=== PATIENT | female | born 1945 | race Caucasian/White ===

== ENCOUNTER 2018-06-17 10:45 | Emergency (ER) | payer MEDICARE, OTHER ==
[2018-06-17 11:25] VITALS: BP 126/68
--- NOTE | 2018-06-17 11:33 | UC ---
Cardiac HPI - HPI Summary HPI Summary: 72-year-old female presents with 2-3 week history of substernal "heartburn" with exertion. States 2 weeks ago she had an episode of severe discomfort with a "crushing chest pain" and shortness of breath. Her most recent episode was 3 days ago that came on while she was climbing her stairs in her home. States she had to stop and rest and symptoms subsided after a few minutes. Symptoms are associated with some additional shortness of breath and nausea. No cardiac history. Denies fever, chills, weakness, dizziness, syncope, abdominal pain, vomiting, diarrhea. - History of Current Complaint Chief Complaint: UCGeneralIllness Stated Complaint: PREV SYNCOPAL EPISODE Time Seen by Provider: 06/17/18 10:52 Hx Obtained From: Patient Pain Intensity: 0 - Allergy/Home Medications Allergies/Adverse Reactions: Allergies Allergy/AdvReac Type Severity Reaction Status Date / Time No Known Allergies Allergy Verified 06/17/18 10:55 Home Medications: Home Medications Albuterol HFA INHALER* [Ventolin HFA Inhaler*] 1 puff INH Q4H 06/17/18 [History Confirmed 06/17/18] Cholecalciferol TAB* [Vitamin D TAB*] 1 each PO DAILY 06/17/18 [History Confirmed 06/17/18] Folic Acid 1 each PO DAILY 06/17/18 [History Confirmed 06/17/18] Levothyroxine TAB* [Synthorid 112 MCG TAB*] 112 mcg PO DAILY 06/17/18 [History Confirmed 06/17/18] Metaproterenol Sulfate 1 neb INH DAILY 06/17/18 [History Confirmed 06/17/18] Methotrexate TAB* 6 tab PO WEEKLY 06/17/18 [History Confirmed 06/17/18] PMH/Surg Hx/FS Hx/Imm Hx - Additional Past Medical History Additional PMH: Rheumatoid arthritis Endocrine History: Hypothyroidism Respiratory History: Asthma - Surgical History Surgical History: None - Family History Known Family History: Positive: Non-Contributory - Social History Occupation: Retired Lives: With Family Alcohol Use: None Substance Use Type: None Smoking Status (MU): Never Smoked Tobacco Review of Systems All Other Systems Reviewed And Are Negative: Yes Constitutional: Negative: Fever, Chills Respiratory: Positive: Shortness Of Breath. Negative: Cough Cardiovascular: Positive: Chest Pain. Negative: Palpitations Gastrointestinal: Positive: Nausea. Negative: Abdominal Pain, Vomiting, Diarrhea Musculoskeletal: Positive: Negative Neurological: Negative: Headache, Weakness, Paresthesia, Numbness Is Patient Immunocompromised?: Yes - Methotrexate for RA Physical Exam - Summary Physical Exam Summary: GENERAL APPEARANCE: Well developed, well nourished, alert and cooperative, and appears to be in no acute distress. NECK: Neck supple, non-tender without lymphadenopathy. No JVD noted. CARDIAC: Normal S1 and S2. No S3, S4 or murmurs. Rhythm is regular. Tachycardic. There is no peripheral edema, cyanosis or pallor. Extremities are warm and well perfused. Capillary refill is less than 2 seconds. Peripheral pulses intact. LUNGS: Clear to auscultation without rales, rhonchi, wheezing or diminished breath sounds. ABDOMEN: Positive bowel sounds. Soft, nondistended, nontender. No guarding or rebound. No masses or hepatosplenomegally. MUSKULOSKELETAL: ROM intact to all extremities. No joint erythema or tenderness. Normal muscular development. Normal gait. SKIN: Skin normal color, texture and turgor with no lesions or eruptions. 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 No old EKG available for comparison. - Assessment/Plan Course Of Treatment: 72-year-old female presents with 2-3 week history of substernal "heartburn" with exertion. States 2 weeks ago she had an episode of severe discomfort with a "crushing chest pain" and shortness of breath. Her most recent episode was 3 days ago that came on while she was climbing her stairs in her home. States she had to stop and rest and symptoms subsided after a few minutes. Symptoms are associated with some additional shortness of breath and nausea. No cardiac history. Denies fever, chills, weakness, dizziness, syncope, abdominal pain, vomiting, diarrhea. Afebrile. Vital signs stable rest however during orthostatic vitals patient became hypotensive when changing from a sitting to standing position. 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 No old EKG available to compare. Exam was unremarkable however with her history, EKG changes, and orthostasis I am recommending immediate evaluation in the emergency room with transport via EMS. Patient is agreeable to this plan of care and was transferred to the [facility] emergency room via [facility] in stable condition. - Differential Diagnoses - Chest Pain Differential Diagnosis/HQI/PQRI: Acute TX, ACS, Angina, Aortic Aneurysm, GI Disease, Lower Respiratory Infection, Pulmonary Embolism - Clinical Impression Provider Diagnosis: Exertional chest pain Discharge - Sign-Out/Discharge Documenting (check all that apply): Patient Departure All imaging exams completed and their final reports reviewed: No Studies - Discharge Plan Condition: Stable Disposition: TRANS HIGHER LVL OF CARE FAC Referrals: Josh Alegre MD [Primary Care Provider] - Additional Instructions: Your symptoms are very concerning for heart disease and possible recent heart attack. I am recommending that you are urgently evaluated in the emergency room and that you be transferred via ambulance. - Billing Disposition and Condition Condition: STABLE Disposition: Trans Higher Lvl of Care Fac
== END 2018-06-17 11:27 | disposition short-term general hospital (02) ==
LOC: UCCORT 10:45
DX: R07.89 Other chest pain (principal); R12 Heartburn; R06.02 Shortness of breath; R11.0 Nausea; E03.9 Hypothyroidism, unspecified; J45.909 Unspecified asthma, uncomplicated; M06.9 Rheumatoid arthritis, unspecified; Z79.899 Other long term (current) drug therapy
CPT/HCPCS: 93005; 99203; G0463

== ENCOUNTER 2018-10-20 18:11 | Emergency (ER) | payer MEDICARE, OTHER ==
--- OUTSIDE RECORDS SUMMARY | 2018-10-20 18:34 | XMS REPORT | Continuity of Care Document ---
:1945 External Reference #:[id number] Author Name Lilly Melendez MD Address [address] [place] [address] Care Team Providers Name Role Phone Fredy Samaniego MD Care Team Information Physician Credentialing Specialist Unavailable Fredy Samaniego MD Primary Care Physician Unavailable Payers Date Identification Numbers Payment Provider Subscriber Policy Number: [id number] Medicare Shilpa Smyth PayID: [id number] [address] [place] [address] Policy Number: [id number] [facility] Joe Smyth PayID: [id number] [address] [place] [address] Expires: 2018 Policy Number: [id number] Medicare Shilpa Smyth PayID: [id number] [address] [place] [address] Family History Date Family Member(s) Observation Comments General Colon Cancer aunts and uncles Father due to IN () Father Myocardial Infarction 81 Father due to Diabetes () Mother Atrial Fibrillation Mother Pacemaker Social History Type Date Description Comments Sex Unknown Marital Status Lives With Daughter Diet Healthy, Well Balanced Occupation [employer] Work Status Retired ADL's/IADL's Independent with all ADL's Tobacco Use Start: Unknown Never Smoked Cigarettes ETOH Use Denies alcohol use Tobacco Use Start: Unknown Patient denies history of smoking Smoking Status Reviewed: 10/19/18 Patient denies history of smoking Allergies, Adverse Reactions, Alerts Active Allergies Reaction Severity Comments Date Environmental 08/18/2008 Medications Active Medications SIG Qnty Indications Ordering Date Provider Flovent Diskus inhale one puff 60units J45.40 Kenny Gandhi MD 08/02/2018 by mouth twice a 100mcg/Blist Aerosol day (rinse mouth after use) Folic Acid 1 po qd David Pride 1mg Tablets Ayaan Solano, [facility] Proair HFA take 2 puffs Unknown 108(90Base) every 6 hours as mcg/Act Aerosol needed for shortness of breath. Levothyroxine Sodium 1 by mouth every Unknown day 112mcg Tablets Vitamin D-3 2 by mouth every Unknown 1000Unit day Capsules Calcium 500 + D 1 tab by mouth Unknown twice a day after [id number] meals Tablets Sulfasalazine 2 by mouth twice Unknown 500mg a day Tablets Methotrexate 6 tablets by Unknown 2.5mg mouth once a week Tablets History Medications Methotrexate PO qd David Pride - 10mg Tablets Ayaan Solano, [facility] Unknown Levothyroxine Sodium 1 po qd David Pride - 125mcg Ayaan Solano, [facility] Unknown Tablets Aspir-81 1 po qd 60tabs David Pride - 81mg Tablets DR Xiomara M.D., [facility] Unknown Advair Diskus take 1 puff Unknown - twice daily. Unknown 250-50mcg/Dose Aerosol Vital Signs Date Vital Result Comment 10/19/2018 11:04am BP Systolic Sitting Left Arm 118 mmHg BP Diastolic Sitting Left Arm 68 mmHg Body Temperature 97.6 F Heart Rate 111 /min Respiratory Rate 18 /min Height 64 inches 5'4" Weight 160.00 lb BMI (Body Mass Index) 27.5 kg/m2 BSA (Body Surface Area) 1.78 m2 [place] body weight in kilograms 54 kg O2 % BldC Oximetry 94 % 09/02/2018 1:45pm BP Systolic Sitting Left Arm 120 mmHg BP Diastolic Sitting Left Arm 82 mmHg Heart Rate 98 /min Respiratory Rate 16 /min Height 64 inches 5'4" Weight 165.00 lb BMI (Body Mass Index) 28.3 kg/m2 BSA (Body Surface Area) 1.80 m2 [place] body weight in kilograms 54 kg O2 % BldC Oximetry 92 % 08/02/2018 12:52pm BP Systolic Sitting Left Arm 118 mmHg BP Diastolic Sitting Left Arm 77 mmHg Heart Rate 107 /min Respiratory Rate 16 /min Height 64 inches 5'4" Weight 164.00 lb BMI (Body Mass Index) 28.1 kg/m2 BSA (Body Surface Area) 1.80 m2 [place] body weight in kilograms 54 kg Both Visual Acuity Distance 97-RA 07/13/2018 2:11pm BP Systolic Sitting Right Arm 102 mmHg BP Diastolic Sitting Right Arm 78 mmHg Heart Rate 115 /min Respiratory Rate 18 /min Weight 166.00 lb O2 % BldC Oximetry 94 % Ora Results Test Date Facility Test Result H/L Range Note Allergens,Zone 08/03/2018 [facility] mRast Class (SEE NOTE) 1, [address] (Text Only) [place] [address] [phone] D Pteronyssinus <0.10 kU/L Class 0 D Farinae Mite <0.10 kU/L Class 0 Cat Hair/Dander <0.10 kU/L Class 0 Dog Hair/Dander <0.10 kU/L Class 0 [facility] <0.[facility] kU/L Class 0 Berm[place] Grass <0.10 kU/L Class 0 Bahia Grass <0.10 kU/L Class 0 Cockroach,Kazakh <0.10 kU/L Class 0 Penicillium Not <0.10 kU/L Class 0 Cladosporium Herbarum <0.10 kU/L Class 0 Apergillis Fumigatus Ige <0.10 kU/L Class 0 Mucor Racemosus <0.10 kU/L Class 0 Alternaria Alternata <0.10 kU/L Class 0 Stemphylium Bot <0.10 kU/L Class 0 Birch,White <0.10 kU/L Class 0 [place],White <0.10 kU/L Class 0 Elm,Kazakh (White) <0.10 kU/L Class 0 Ramesh,White <0.10 kU/L Class 0 Hazelnut Tree T004 Ige <0.10 kU/L Class 0 Edgar,White <0.10 kU/L Class 0 Lowland,White <0.10 kU/L Class 0 Rogers,Mountain <0.10 kU/L Class 0 Ragweed,Short/ 4.04 kU/L Class IV Mugwort 0.25 kU/L Class 0/I Plantain,Slovak <0.10 kU/L Class 0 Pigweed,Rough <0.10 kU/L Class 0 Sheep Broughton (DO <0.10 kU/L Class 0 Nettle <0.10 kU/L Class 0 3 Maple/White Swan Ige T001 <0.10 kU/L Class 0 CBC W/Automated Diff 07/14/2018 [facility] White Blood 3.9 K/uL N 3.1-10.[address] [place] [address] [phone] Red Blood Count 4.47 M/uL N 3.90-5.40 Hemoglobin 13.8 gm/dL N 11.6-15.8 Hematocrit 42.6 % N 36.0-46.1 Mean Cell Volume 95.3 fl N 80.9-99.0 Mean Corpuscular HGB 30.9 pg N 25.9-32.7 Mean Corpuscular HGB Conc 32.4 g/dL N 30.8-34.3 Platelet Count 320 K/uL N 155-360 Red Cell Distri Width SD 53.0 fl High 36-47 Red Cell Distri Width %CV 15.6 % High 11.7-14.4 Mean Platelet Volume 9.5 fL N 8.9-12.4 Neut% 52.3 % N 40.4-72.8 Lymph % 30.3 % N 20.0-42.0 Iron % 9.7 % N 4.3-13.2 Eo% 6.4 % N 0.0-6.6 Bas% 1.3 % High 0.0-1.1 Neut# 2.06 K/uL N 1.8-7.0 Lymph # 1.19 K/uL N 1.0-4.0 Iron # 0.38 K/uL N 0.3-0.9 Eos # 0.25 K/uL N 0.0-0.5 Baso # 0.05 K/uL N 0.0-0.1 Comprehensive Metabolic 07/14/2018 [facility] Glucose 84 mg/dL N 74-[address] [place] [address] [phone] BUN 15 mg/dL N 7-18 Creatinine 0.8 mg/dL 0.6-1.3 Glom Filtration Rate, Estimate >60 mL/min >60 If >60 mL/min >60 5 BUN/Creat 18.7 ratio Sodium 139 mmol/L N 136-145 Potassium 3.8 mmol/L N 3.5-5.1 Chloride 106 mmol/L N 98-107 Carbon Dioxide 27 mmol/L N 21-32 Anion Gap 6 mEq/L Low 8-16 Calcium 8.9 mg/dL N 8.5-10.1 Total Protein 7.5 g/dL N 6.4-8.2 Albumin 3.5 g/dL N 3.4-5.0 Globulin 4.0 g/dL N 1.9-4.3 Alb/Glob 0.9 ratio Bilirubin,Total 0.6 mg/dL N 0.2-1.0 Sgot/Ast 25 U/L N 15-37 SGPT/Alt 24 U/L N 12-78 Alkaline Phosphatase 94 U/L N 45-117 Laboratory test 07/14/2018 [facility] Magnesium 2.0 N 1.8-2.[address] mg/[place] [address] [phone] Blood 06/18/2018 N2N/CCD Import Blood 11.9 11.6-15.8 hemoglobin hemoglobin measurement measurement (mass/volume) (mass/volume) Blood monocytes 06/18/2018 N2N/CCD Import Blood 0.38 0.3-0.9 automated count monocytes (number/volume) automated count (number/volume ) Co2 SerPl-sCnc 06/18/2018 N2N/CCD Import Co2 SerPl-sCnc 23 21-32 Hct VFr Bld 06/18/2018 N2N/CCD Import Hct VFr Bld 35.8 Low 36.0-46.1 Auto Auto Serum or plasma 06/18/2018 N2N/CCD Import Serum or 8 8-16 anion gap plasma anion gap Serum or plasma 06/18/2018 N2N/CCD Import Serum or 8.0 Low 8.5-10.1 calcium plasma calcium measurement measurement (mass/volume) (mass/volume) Serum or plasma 06/18/2018 N2N/CCD Import Serum or 110 High 98-107 chloride plasma measurement chloride measurement Serum or plasma 06/18/2018 N2N/CCD Import Serum or 0.6 0.6-1.3 creatinine plasma measurement creatinine (mass/volum measurement (mass/volume) Serum or plasma 06/18/2018 N2N/CCD Import Serum or 101 74-106 glucose plasma glucose measurement measurement (mass/volume) (mass/volume) Serum or plasma 06/18/2018 N2N/CCD Import Serum or 3.4 Low 3.5-5.1 potassium plasma measurement potassium measurement Serum or plasma 06/18/2018 N2N/CCD Import Serum or 9 7-18 urea nitrogen plasma urea measurement nitrogen (mass/vo measurement (mass/volume) Serum or plasma 06/18/2018 N2N/CCD Import Serum or 15.0 urea plasma urea nitrogen/creati nitrogen/creat nine mass rati inine mass ratio Sodium 06/18/2018 N2N/CCD Import Sodium 141 136-145 SerPl-sCnc SerPl-sCnc Serum or plasma 06/18/2018 N2N/CCD Import Serum or 1.25 0.76-1.46 free thyroxine plasma free (FT4) thyroxine measurement ( (FT4) measurement (mass/volume) Serum or plasma 06/18/2018 N2N/CCD Import Serum or 1.9 1.8-2.4 magnesium plasma measurement magnesium (mass/volume measurement (mass/volume) Serum or plasma 06/18/2018 N2N/CCD Import Serum or 0.38 0.30-4.20 thyrotropin plasma measurement thyrotropin (units/vol measurement (units/volume) CBC W/Automated 06/18/2018 [facility] White Blood 2.0 K/uL Low 3.1-10.7 6, [address] [place], [place] [id number] [phone] Red Blood Count 3.78 M/uL Low 3.90-5.40 Hemoglobin 11.9 gm/dL N 11.6-15.8 Hematocrit 35.8 % Low 36.0-46.1 Mean Cell Volume 94.7 fl N 80.9-99.0 Mean Corpuscular HGB 31.5 pg N 25.9-32.7 Mean Corpuscular HGB Conc 33.2 g/dL N 30.8-34.3 Platelet Count 233 K/uL N 155-360 Red Cell Distri Width SD 51.0 fl High 36-47 Red Cell Distri Width %CV 15.2 % High 11.7-14.4 Mean Platelet Volume 10.4 fL N 8.9-12.4 Neut% 38.6 % Low 40.4-72.8 Lymph % 40.6 % N 20.0-42.0 Iron % 19.3 % High 4.3-13.2 Eo% 1.0 % N 0.0-6.6 Bas% 0.5 % N 0.0-1.1 Neut# 0.76 K/uL Low 1.8-7.0 Lymph # 0.80 K/uL Low 1.0-4.0 Iron # 0.38 K/uL N 0.3-0.9 Eos # 0.02 K/uL N 0.0-0.5 Baso # 0.01 K/uL N 0.0-0.1 Basic Metabolic Panel 06/18/2018 [facility] Glucose 101 mg/dL N 74-106 [address] [place] [address] [phone] BUN 9 mg/dL N 7-18 Creatinine 0.6 mg/dL N 0.6-1.3 Glom Filtration Rate, Estimate >60 mL/min >60 If >60 mL/min >60 8 BUN/Creat 15.0 ratio Sodium 141 mmol/L N 136-145 Potassium 3.4 mmol/L Low 3.5-5.1 Chloride 110 mmol/L High 98-107 Carbon Dioxide 23 mmol/L N 21-32 Anion Gap 8 mEq/L N 8-16 Calcium 8.0 mg/dL Low 8.5-10.1 Absolute neutrophil 06/18/2018 N2N/CCD Import Absolute 0.76 *L 1.8-7.0 count neutrophil count Automated basophil 06/18/2018 N2N/CCD Import Automated basophil 0.5 0.0- 1.1 % % Automated blood 06/18/2018 N2N/CCD Import Automated blood 0.01 0.0-0.1 basophil count basophil count (number/volume) (number/volume) Automated blood 06/18/2018 N2N/CCD Import Automated blood 0.02 0.0-0.5 eosinophil count eosinophil count Automated blood 06/18/2018 N2N/CCD Import Automated blood 2.0 *L 3.1- 10.7 leukocyte count leukocyte count (number/volume) (number/volume) Automated blood 06/18/2018 N2N/CCD Import Automated blood 0.80 Low 1.0- 4.0 lymphocyte count lymphocyte count (number/volume) (number/volume) Automated blood 06/18/2018 N2N/CCD Import Automated blood 40.6 20.0- 42.0 lymphocytes/100 lymphocytes/100 leukocytes leukocytes Automated blood 06/18/2018 N2N/CCD Import Automated blood 38.6 Low 40.4- 72.8 neutrophils/100 neutrophils/100 leukocytes leukocytes Blood erythrocytes 06/18/2018 N2N/CCD Import Blood erythrocytes 3.78 Low 3.90-5.40 automated count automated count (number/volume) (number/volume) Automated monocyte 06/18/2018 N2N/CCD Import Automated monocyte 19.3 High 4.3-13.2 % % Automated 06/18/2018 N2N/CCD Import Automated 94.7 80.9-99.0 erythrocyte mean erythrocyte mean corpuscular volume corpuscular volume (MCV (MCV) measurement Automated 06/18/2018 N2N/CCD Import Automated 33.2 30.8-34.3 erythrocyte mean erythrocyte mean corpuscular corpuscular hemoglobin hemoglobin concentration measurement (mass/volume) Automated 06/18/2018 N2N/CCD Import Automated 31.5 25.9-32.7 erythrocyte mean erythrocyte mean corpuscular corpuscular hemoglobin hemoglobin (mass per erythrocyte) Automated 06/18/2018 N2N/CCD Import Automated 15.2 High 11.7-14.4 erythrocyte erythrocyte distribution width distribution width ratio ratio Automated 06/18/2018 N2N/CCD Import Automated 51.0 High 36-47 erythrocyte erythrocyte distribution width distribution width Automated 06/18/2018 N2N/CCD Import Automated 1.0 0.0-6.6 eosinophil % eosinophil % Automated blood 06/18/2018 N2N/CCD Import Automated blood 10.4 8.9-12.4 platelet mean platelet mean volume measurement volume measurement Automated blood 06/18/2018 N2N/CCD Import Automated blood 233 155-360 platelet count platelet count Manual blood 06/17/2018 N2N/CCD Import Manual blood 12 High 0-10 monocytes/100 monocytes/100 leukocytes leukocytes Manual blood 06/17/2018 N2N/CCD Import Manual blood 52 33-73 segmented segmented neutrophils/100 neutrophils/100 leukocytes leukocytes RBC morphology 06/17/2018 N2N/CCD Import RBC morphology Normal Serum globulin 06/17/2018 N2N/CCD Import Serum globulin 4.1 1.9-4.3 measurement by measurement by calculation calculation (mass/vo (mass/volume) Serum or plasma 06/17/2018 N2N/CCD Import Serum or plasma 18 12-78 alanine alanine aminotransferase aminotransferase measureme measurement (enzymatic activity/volume) Serum or plasma 06/17/2018 N2N/CCD Import Serum or plasma 3.2 Low 3.4- 5.0 albumin measurement albumin (mass/volume) measurement (mass/volume) Serum or plasma 06/17/2018 N2N/CCD Import Serum or plasma 0.8 albumin/globulin albumin/globulin mass ratio mass ratio Serum or plasma 06/17/2018 N2N/CCD Import Serum or plasma 80 45-117 alkaline alkaline phosphatase phosphatase measurement ( measurement (enzymatic activity/volume) Serum or plasma 06/17/2018 N2N/CCD Import Serum or plasma 27 15-37 aspartate aspartate aminotransferase aminotransferase measure measurement (enzymatic activity/volume) Serum or plasma 06/17/2018 N2N/CCD Import Serum or plasma 156 56-289 lipase measurement lipase measurement (enzymatic acti (enzymatic activity/volume) Serum or plasma 06/17/2018 N2N/CCD Import Serum or plasma 7.3 6.4-8.2 protein measurement protein (mass/volume) measurement (mass/volume) Serum or plasma 06/17/2018 N2N/CCD Import Serum or plasma 0.3 0.2-1.0 total bilirubin total bilirubin measurement (mass/ measurement (mass/volume) Unloinc 06/17/2018 N2N/CCD Import Unloinc Diff Ordered Laboratory test 06/17/2018 [facility] Troponin-I < 0.015 [address] ng/[place] [address] [phone] Epithelial cells 06/17/2018 N2N/CCD Import Epithelial cells Few None Seen detection in urine detection in urine sediment by li sediment by light microscopy Specific gravity of 06/17/2018 N2N/CCD Import Specific gravity 1.010 1.010-1.03 Urine by Automated of Urine by 0 test strip Automated test strip Urine appearance 06/17/2018 N2N/CCD Import Urine appearance Clear Clear determination determination Urine color 06/17/2018 N2N/CCD Import Urine color Yellow Yellow determination determination Urine glucose 06/17/2018 N2N/CCD Import Urine glucose Negative Negative measurement by measurement by automated test automated test strip strip (mass/volume) Urine hemoglobin 06/17/2018 N2N/CCD Import Urine hemoglobin Negative Negative detection by detection by automated test automated test strip strip Urine ketones 06/17/2018 N2N/CCD Import Urine ketones Negative Negative measurement by measurement by automated test automated test strip strip (mass/volume) Urine leukocyte 06/17/2018 N2N/CCD Import Urine leukocyte Trace High Negative esterase detection esterase detection by automated te by automated test strip Urine nitrite 06/17/2018 N2N/CCD Import Urine nitrite Negative Negative detection by detection by automated test automated test strip strip Urine pH 06/17/2018 N2N/CCD Import Urine pH 6.0 Low 6.5-7.5 measurement by measurement by automated test automated test strip strip Urine protein 06/17/2018 N2N/CCD Import Urine protein Negative Negative measurement by measurement by automated test automated test strip strip (mass/volume) Urine total 06/17/2018 N2N/CCD Import Urine total Negative Negative bilirubin detection bilirubin by automated test detection by automated test strip Urine urobilinogen 06/17/2018 N2N/CCD Import Urine urobilinogen 0.2 0.2- 1.0 measurement measurement (units/volume) by t (units/volume) by test strip * Miscellaneous 06/17/2018 N2N/CCD Import * Miscellaneous Test(s) studies (set) studies (set) added Blood platelet 06/17/2018 N2N/CCD Import Blood platelet Normal adequacy detection adequacy detection by light microsc by light microscopy Blood total cell 06/17/2018 N2N/CCD Import Blood total cell 100 count count Manual blood band 06/17/2018 N2N/CCD Import Manual blood band 9 High 0-8 neutrophils neutrophils form/100 leukocytes form/100 leukocytes Manual blood 06/17/2018 N2N/CCD Import Manual blood 27 20-42 lymphocytes/100 lymphocytes/100 leukocytes leukocytes Laboratory test 07/29/2017 N2N/CCD Import Anion Gap 5 mEq/L Low 8-16 10 finding BUN 14 mg/dL 7-18 BUN/Creat 20.0 ratio C-Reactive Protein,Cardiac 2.79 mg/L Calcium 8.7 mg/dL 8.5-10.1 Carbon Dioxide 28 mmol/L 21-32 Chloride 107 mmol/L 98-107 Creatinine 0.7 mg/dL 0.6-1.3 Glom Filtration Rate, Estimate >60 mL/min Glucose 83 mg/dL 74-106 Hematocrit 38.8 % 36-46.1 Hemoglobin 12.7 gm/dL 11.6-15.8 If >60 mL/min 11 Mean Cell Volume 98.0 fl 80.9-99 Mean Corpuscular HGB 32.1 pg 25.9-32.7 Mean Corpuscular HGB Conc 32.7 g/dL 30.8-34.3 Mean Platelet Volume 10.3 fL 8.9-12.4 Platelet Count 289 K/uL 155-360 Potassium 3.7 mmol/L 3.5-5.1 Red Blood Count 3.96 M/uL 3.9-5.4 Red Cell Distri Width %CV 15.0 % High 11.7-14.4 Sedimentation Rate 24 mm/hr 0-30 12 Sodium 140 mmol/L 136-145 Vitamin D,25-Hydroxy 29.4 ng/mL Low 30-100 13 White Blood Count 5.3 K/uL 3.1-10.7 LDL Cholesterol Profile 07/29/2017 N2N/CCD Import Cholesterol 164 mg/dL 14 HDL Cholesterol 72 mg/dL 15 LDL-Cholesterol 82 mg/dL 16 Triglycerides 52 mg/dL 17 Laboratory test finding 07/13/2017 N2N/CCD Import Reflex add FT3? N 18 Reflex add FT4? Y Thyroid Stim Hormone 1.41 uIU/mL 0.3-4.2 Laboratory test finding 02/09/2017 N2N/CCD Import Free T4 1.65 ng/dL High 0.76-1.46 Reflex add FT4? Y Thyroid Stim Hormone 0.23 uIU/mL Low 0.3-4.2 1 SEE NOTE 2 Levels of Specific IgE Class Description of Class ----- < 0.10 0 Negative 0.10 - 0.31 0/I Equivocal/Low 0.32 - 0.55 I Low 0.56 - 1.40 II Moderate 1.41 - 3.90 III High 3.91 - 19.00 IV Very High 19.01 - 100.00 V Very High >100.00 Very High 3 Test(s) 206947-A425-BrI Cockroach, Kazakh; 803116- Q938-ZeP Edgar, White were developed and had performance characteristics determined by [facility]. These tests have not been cleared or approved by the U.S. Food and Drug Administration. The FDA has determined that such clearance or approval is not necessary. These tests are used for clinical purposes. These should not be regarded as investigational or for research. Performed at: - [facility] [id number] Grinder Operator Tool: Greg Andino MD, Phone: [phone] R00.0 5 Note: Persistent reduction for 3 months or more in an eGFR <60 mL/min/1.73 m2 defines CKD. Patients with eGFR values >/=60 mL/min/1.73 m2 may also have CKD if evidence of persistent proteinuria is present. The original MDRD equation for estimated GFR is not valid for patients less than 18 years of age. Additional information may be found at www.kdoqi.org. 6 CHEST PAIN 7 Results consistent with previous results 8 Note: Persistent reduction for 3 months or more in an eGFR <60 mL/min/1.73 m2 defines CKD. Patients with eGFR values >/=60 mL/min/1.73 m2 may also have CKD if evidence of persistent proteinuria is present. The original MDRD equation for estimated GFR is not valid for patients less than 18 years of age. Additional information may be found at www.kdoqi.org. 9 0.0 - 0.045 ng/mL: Normal 0.046 - 0.5 ng/mL: Suggestive 0.6 - 1.5 ng/mL: Consistent 10 Z12.31, Z78.0 M05.40 E55.9 Z00.00 11 Note: Persistent reduction for 3 months or more in an eGFR <60 mL/min/1.73 m2 defines CKD. Patients with eGFR values >/=60 mL/min/1.73 m2 may also have CKD if evidence of persistent proteinuria is present. The original MDRD equation for estimated GFR is not valid for patients less than 18 years of age. Additional information may be found at www.kdoqi.org. 12 Method: Sediplast Modified Westergren 13 Vitamin D deficiency has been defined by the [place] [employer] and an Endocrine Society practice guideline as a level of serum 25-OH vitamin D less than 20 ng/mL (1,2). The Endocrine Society went on to further define vitamin D insufficiency as a level between 21 and 29 ng/mL (2). 1. IOM ([place] [employer]). 2010. Dietary reference intakes for calcium and D. [place]: The National Academies Press. 2. Kasia Anton, Corrie MEHTA, et al. Evaluation, treatment, and prevention of vitamin D deficiency: an Endocrine Society clinical practice guideline. JCEM. 2010; 96(7):191-. Performed at: RN - [facility] [address] [id number] Grinder Operator Tool: Apoorva Stoddard MD, Phone: [phone] Reference Guidelines*: Desirable: ........... < 200 mg/dL Borderline High: ..... 200-239 mg/dL High: ................ >=240 mg/dL * The National Cholesterol Education Program (NCEP) 15 Method: Sediplast Modified Westergren 16 Vitamin D deficiency has been defined by the [place] [employer] and an Endocrine Society practice guideline as a level of serum 25-OH vitamin D less than 20 ng/mL (1,2). The Endocrine Society went on to further define vitamin D insufficiency as a level between 21 and 29 ng/mL (2). 1. IOM ([place] [employer]). 2010. Dietary reference intakes for calcium and D. [place]: The National Academies Press. 2. Kierra BRADLEY, Kasia STOKES, Corrie MEHTA, et al. Evaluation, treatment, and prevention of vitamin D deficiency: an Endocrine Society clinical practice guideline. JCEM. 2010; 96(7):191-. Performed at: RN - [facility] [id number] Grinder Operator Tool: Apoorva Stoddard MD, Phone: [phone] Reference Guidelines*: Normal: ............. < 150 mg/dL Borderline High: .... 150-199 mg/dL High: ............... 200-499 mg/dL Very High: .......... > 500 mg/dL * Source: National Cholesterol Education Program (NCEP) 18 E03.9 Procedures Date Code Description Status 10/19/2018 29936 EKG-Tracing And Report Completed 08/11/2018 14306 Bronchospasm Provocation Evaluation Multi Spirometric Completed Determinati 08/11/2018 16851 Spirometry Completed 07/13/2018 74093 EKG-Tracing And Report Completed 07/05/2018 85031 Stress Test Interpre And Report Only Completed 07/05/2018 73415 Stress Test Physician Super Only Completed 07/05/2018 38136 Myocardial Imaging Tomographic Multiple Study AT Rest Or Completed Stress 06/18/2018 08374 Echocardiogram Complete Completed 10/23/2008 74536 Colonoscopy Completed 08/18/2008 16604 EKG-Tracing And Report Completed 07/24/2008 42728 Echocardiogram Complete Completed Encounters Type Date Location Provider Dx Diagnosis Office Visit 10/19/2018 Cardiology Office Lilly Melendez MD R06.02 Shortness of 11:00a breath R07.2 Precordial pain R00.0 Tachycardia, unspecified Office Visit 09/02/2018 1:45p Pulmonology Kenny Gandhi, J45.20 Mild intermittent MD asthma, uncomplicated J30.9 Allergic rhinitis, unspecified Office Visit 08/02/2018 1:00p Pulmonology Kenny Gandhi J45.40 Moderate persistent MD asthma, uncomplicated J30.9 Allergic rhinitis, unspecified Z01.818 Encounter for other preprocedural examination K44.9 Diaphragmatic hernia without obstruction or gangrene I27.29 Other secondary pulmonary hypertension Office Visit 07/13/2018 2:00p Cardiology Office Salazar R06.02 Shortness of Marlyss B., PA breath R00.0 Tachycardia, unspecified I45.19 Other right bundle-branch block I49.3 Ventricular premature depolarization Office Visit 09/21/2008 10:50a Dexter Jones, 783.21 Loss Of Weight MD Office Visit 08/18/2008 10:45a Cardiology Office iBgg, 780.2 Syncope & Gwendolyn Khan M.D., [facility] Plan of Treatment Future Appointment(s):04/27/2019 10:15 am - Lilly Melendez MD at Cardiology Hebiic4303/08/2019 10:00 am - Debi Carson PA at [facility]/11/2019 - Lilly Melendez, MDR06.02 Shortness of breathComments:Stable. Treated for asthma. No changes made. Pt feels well now. Follows with Dr Angela.2 Precordial painComments:No recurrences. Stress testing in June was [id number] Tachycardia, unspecifiedComments:Asymptomatic. Sinus arrhythmias on exam, HR fluctuating mainly in the 90'. Normal LV function. Will hold off treatment unless pt symptomatic.AllFollow up:6 months. Sooner appt if symptoms arise.
[2018-10-20 19:07] VITALS: BP 106/74
--- NOTE | 2018-10-20 19:46 | ED ---
Skin Complaint - HPI Summary HPI Summary: pt presents to the with her family member for evaluation of her rash to her left back. she states that she did not realize she had it. she has been in bed for 3 days. she states that she saw her assistant professor of drama, Dr. Melendez, yesterday. he knew that pt was tachycardic but he told her it was regular so it was ok. pt states she is nauseated. she was a little light headed. she further stated that she saw a tick on her left hand the other day and she took it off. - History of Current Complaint Chief Complaint: UCGeneralIllness Stated Complaint: BULLSEYE ON BACK (TICK) Hx Obtained From: Patient, Family/Behavioral Sciences Department Chair Skin Exposure Onset/Duration: Days Ago Timing: Lasting Days Onset Severity: Moderate Current Severity: Moderate Pain Intensity: 5 - Allergy/Home Medications Allergies/Adverse Reactions: Allergies Allergy/AdvReac Type Severity Reaction Status Date / Time No Known Allergies Allergy Verified 10/20/18 19:07 Home Medications: Home Medications Aspirin/Acetaminophen/Caffeine [Excedrin Extra Strength Caplet] 2 each PO DAILY 10/20/18 [History Confirmed 10/20/18] Calcium Carbonate [Calcium] 500 mg PO DAILY 10/20/18 [History Confirmed 10/20/18 ] Fluticasone HFA 110 mcg(NF) [Flovent HFA 110 mcg(NF)] 1 puff INH BID 10/20/18 [ History Confirmed 10/20/18] PMH/Surg Hx/FS Hx/Imm Hx Previously Healthy: Yes Endocrine/Hematology History: Reports: Hx Thyroid Disease Respiratory History: Reports: Hx Asthma Infectious Disease History: Yes Infectious Disease History: Reports: Hx Shingles Denies: History Other Infectious Disease, Traveled Outside the [place] in Last 30 Days - Family History Known Family History: Positive: Non-Contributory - Social History Alcohol Use: None Substance Use Type: Reports: None Smoking Status (MU): Never Smoked Tobacco Review of Systems Positive: Fatigue. Negative: Fever, Chills Eyes: Negative ENT: Negative Cardiovascular: Negative Respiratory: Negative Gastrointestinal: Negative Negative: burning, dysuria, discharge, frequency, flank pain Positive: Arthralgia, Myalgia Positive: Rash Positive: Weakness. Negative: Numbness, Syncope Psychological: Normal All Other Systems Reviewed And Are Negative: No Physical Exam Triage Information Reviewed: Yes Vital Signs On Initial Exam: Initial Vitals Temp Pulse Resp BP Pulse Ox 99.1 F 125 14 106/74 96 10/20/18 19:01 10/20/18 19:01 10/20/18 19:01 10/20/18 19:01 10/20/18 19:01 Vital Signs Reviewed: Yes Appearance: Positive: Well-Appearing, No Pain Distress, Well-Nourished Skin: Positive: Warm, Dry, Other - large erythematous rash that is approximately 15cm in diameter. there is a clear ring that is approximately 4 cmm from the center. not indurated. it is warm to touch. Eyes: Positive: Normal, EOMI, RENUKA ENT: Positive: Hearing grossly normal Neck: Positive: Supple, Nontender Respiratory/Lung Sounds: Positive: Clear to Auscultation, Breath Sounds Present Cardiovascular: Positive: Tachycardia Abdomen Description: Positive: Nontender, Soft Bowel Sounds: Positive: Present Musculoskeletal: Positive: Normal, Strength/ROM Intact Neurological: Positive: Normal, Sensory/Motor Intact, Alert, Oriented to Person Place, Time, CN Intact II-III Psychiatric: Positive: Normal AVPU Assessment: Alert Diagnostics - Vital Signs Vital Signs Temp Pulse Resp BP Pulse Ox 10/20/18 19:01 99.1 F 125 14 106/74 96 - Laboratory Lab Statement: Any lab studies that have been ordered have been reviewed, and results considered in the medical decision making process. Course/Dx - Course Course Of Treatment: I am very concerned that pt has had fatigue for 3 days and has not wanted to get out of bed. she is tachycardic with a cellulitis rash with a central clearing area. pt is concerned about lyme disease. I am concerned about sepsis. I discussed with pt and discussed the imperativeness to go to the Ed for further evaluation. they were comfortable with the plan and agreed to go for further evaluation. - Diagnoses Provider Diagnoses: Cellulitis, Tachycardia Discharge - Sign-Out/Discharge Documenting (check all that apply): Patient Departure All imaging exams completed and their final reports reviewed: No Studies - Discharge Plan Condition: Stable [facility] Patient Education Materials: Cellulitis (DC) Referrals: Fredy Samaniego MD [Primary Care Provider] - Additional Instructions: Go to the Emergency Department immediately after discharge from the Urgent Care for further evaluation of your fast heart rate and your large rash to your back. - Billing Disposition and Condition Condition: STABLE Disposition: Trans [facility] L[facility] of Care Fac
== END 2018-10-20 19:55 | disposition short-term general hospital (02) ==
LOC: UCCORT 18:11
DX: L03.312 Cellulitis of back [any part except buttock and flank] (principal); R00.0 Tachycardia, unspecified; Z86.19 Personal history of other infectious and parasitic diseases
CPT/HCPCS: 99212; G0463